=== PATIENT | male | born 1990 | race Caucasian/White ===

== ENCOUNTER 2025-07-11 14:56 | Outpatient (CLI) | payer OTHER, SELFPAY ==
--- OUTSIDE RECORDS SUMMARY | 2025-06-23 11:30 | XMS_ITS | Encounter Summary ---
Author Organization [employer] ([place], [place], [place], [place], [place]) Address [address] [place] [address] Care Team Providers Care Director Search Name Role Phone Unavailable Primary Care Provider Unavailabl e Reason for Visit * Consultation (Routine) - Closed Specialty Diagnoses / Procedures Referred By Perez t Referred To Contact Gastroenterology Diagnoses Gastroparesis Elaina Alcazar, MASSIEL [address] [place] [address] Phone: tel: fax: [facility] Gastroenterology [address] [place] [address] Phone: tel: fax: Referral ID Status Reason Start Date Expiration Date V isits Requested Visits Authorized [id number] Closed Specialty Services Required 04/21/2025 04/21/2026 1 1 Encounter Details Date Type Department Care Team (Latest Contact Info) Description 06/23/2025 11:30 AM EST Initial Consult [facility] Gastroenterology [address] [place] [address] Elaina Alcazar BRIDGE CONTRACTOR [address] [place], [place] [id number] Alma Cervantes MD [address] [facility] [address] [place] [address] Exocrine pancreatic insufficiency (Primary Dx); Bilious vomiting with nausea; Marijuana use Social History Tobacco Use Types Packs/Day Years Used Date Smoking Tobacco: Former Cigarettes 0.3 2 Smokeless Tobacco: Former Snuff Quit: 07/14/2023 Tobacco Cessation:Counseling Given: Not Answered Alcohol Use Standard Drinks/Week Comments Never 0 (1 standard drink = 0.6 oz pur e alcohol) Sex and Gender Information Value Date Recorded Sex Assigned at Not on file Legal Sex Male 6:18 PM CDT Gender Identity Not on file Sexual Orientation Not on file documented as of this encounter Last Filed Vital Signs Vital Sign Reading Time Taken Comments Blood Pressure 106/68 06/23/2025 11:19 AM EST Pulse 62 06/23/2025 11:19 AM EST Temperature 36.7 C (98 F) 06/23/2025 11:19 AM EST Respiratory Rate - - Oxygen Saturation 98% 06/23/2025 11:19 AM EST Inhaled Oxygen Concentration - - Weight 60.1 kg (132 lb 9.6 oz) 06/23/2025 11:19 AM EST Height 175.3 cm (5' 9 ) 06/23/2025 11:19 AM EST Body Mass Index 19.58 06/23/2025 11:19 AM EST documented in this encounter Functional Status * BP Answer Date of Assessment Author 106/68 06/23/2025 11:19 AM Rony Powell CMA * Temp Answer Date of Assessment Author 98 06/23/2025 11:19 AM Rony Powell CMA * Temp src Answer Date of Assessment Author Skin 06/23/2025 11:19 AM Rony Powell CMA * Pulse Answer Date of Assessment Author 62 06/23/2025 11:19 AM Rony Powell CMA * SpO2 Answer Date of Assessment Author 98 06/23/2025 11:19 AM Rony Powell CMA * Height Answer Date of Assessment Author 69 06/23/2025 11:19 AM Rony Powell CMA * Weight Answer Date of Assessment Author 2121.6 06/23/2025 11:19 AM Rony Powell CMA * Tidal Volume Answer Date of Assessment Author 420 06/23/2025 11:19 AM Rony Powell CMA * Shock Index Answer Date of Assessment Author 0.58 06/23/2025 11:19 AM CAREER BASED INTERVENTION COORDINATOR Rony Villalobos, SHIFT ENGINEER * BMI (Calculated) Answer Date of Assessment Author 19.6 06/23/2025 11:19 AM CAREER BASED INTERVENTION COORDINATOR Rony Villalobos, SHIFT ENGINEER * BP Location Answer Date of Assessment Author Left arm 06/23/2025 11:19 AM CAREER BASED INTERVENTION COORDINATOR Rony Villalobos, SHIFT ENGINEER * Patient Position Answer Date of Assessment Author Sitting 06/23/2025 11:19 AM CAREER BASED INTERVENTION COORDINATOR Rony Villalobos, SHIFT ENGINEER * BP Answer Date of Assessment Author 106/68 06/23/2025 11:19 AM CAREER BASED INTERVENTION COORDINATOR Nikolai Villalobosta, SHIFT ENGINEER * Pulse Answer Date of Assessment Author 62 06/23/2025 11:19 AM CAREER BASED INTERVENTION COORDINATOR Rony Villalobos, SHIFT ENGINEER * SpO2 Answer Date of Assessment Author 98 06/23/2025 11:19 AM CAREER BASED INTERVENTION COORDINATOR Rony Villalobos, SHIFT ENGINEER * BMI (Calculated) Answer Date of Assessment Author 19.6 06/23/2025 11:19 AM CAREER BASED INTERVENTION COORDINATOR Rony Villalobos SHIFT ENGINEER documented as of this encounter Mental Status * BP Answer Entry Date Author 106/68 06/23/2025 11:19 AM CAREER BASED INTERVENTION COORDINATOR Rony Villalobos, SHIFT ENGINEER * Temp Answer Entry Date Author 98 06/23/2025 11:19 AM CAREER BASED INTERVENTION COORDINATOR Rony Villalobos, SHIFT ENGINEER * Temp src Answer Entry Date Author Skin 06/23/2025 11:19 AM CAREER BASED INTERVENTION COORDINATOR Rony Villalobos, SHIFT ENGINEER * Pulse Answer Entry Date Author 62 06/23/2025 11:19 AM CAREER BASED INTERVENTION COORDINATOR Rony Villalobos, SHIFT ENGINEER * SpO2 Answer Entry Date Author 98 06/23/2025 11:19 AM CAREER BASED INTERVENTION COORDINATOR Rony Villalobos, SHIFT ENGINEER * Height Answer Entry Date Author 69 06/23/2025 11:19 AM CAREER BASED INTERVENTION COORDINATOR Nikolai Villalobosta, SHIFT ENGINEER * Weight Answer Entry Date Author 2121.6 06/23/2025 11:19 AM CAREER BASED INTERVENTION COORDINATOR Nikolai Villalobosta, SHIFT ENGINEER * Tidal Volume Answer Entry Date Author 420 06/23/2025 11:19 AM CAREER BASED INTERVENTION COORDINATOR Rony Villalobos, SHIFT ENGINEER * Shock Index Answer Entry Date Author 0.58 06/23/2025 11:19 AM CAREER BASED INTERVENTION COORDINATOR Rony Villalobos, SHIFT ENGINEER * BMI (Calculated) Answer Entry Date Author 19.6 06/23/2025 11:19 AM Rony Powell CMA * BP Location Answer Entry Date Author Left arm 06/23/2025 11:19 AM Rony Powell CMA * Patient Position Answer Entry Date Author Sitting 06/23/2025 11:19 AM Rony Powell CMA documented in this encounter Progress Notes * Alma Cervantes MD - 06/23/2025 11:30 AM EST Subjective History of Present Illnesses: He is a 35-year-old man with a BMI of 20 and long history of marijuana use referred for history of pancreatic insufficiency and gastroparesis. He said he underwent extensive GI workup in [place] in the past. No significant pathology was found. He was treated with Zenpep. He complained of infrequent nausea and vomiting but otherwise doing well with Zenpep. Denied alcohol use. Denied melena or rectal bleeding. Past Medical History: Diagnosis Date Colon polyp 06-30-2023 5 mm polyp that was pre cancerous was removed GERD (gastroesophageal reflux disease) 06-30-2023 Its actually exocrine pancreatic insufficiency and gastroparesis Past Surgical History: Procedure Laterality Date COLONOSCOPY 06-30-2023 UPPER GASTROINTESTINAL ENDOSCOPY 06-30-2023 Social History Substance and Sexual Activity Alcohol Use Never Family History Problem Relation Name Age of Onset Irritable bowel syndrome Mother Allyssa Alexander Review of Systems Constitutional: Positive for fatigue. Gastrointestinal: Positive for abdominal pain, nausea and vomiting. All other systems reviewed and are negative. Physical Exam: Blood pressure 106/68, pulse 62, temperature 98 ??F (36.7 ??C), temperature source Skin, height 1.753 m (5' 9 ), weight 60.1 kg (132 lb 9.6 oz), SpO2 98%. Physical Exam Vitals and nursing note reviewed. Exam conducted with a press operator automatic present. Constitutional: General: He is not in acute distress. Appearance: Normal appearance. He is normal weight. He is not ill-appearing, toxic-appearing or diaphoretic. Abdominal: General: Abdomen is flat. There is no distension. Palpations: Abdomen is soft. Tenderness: There is no abdominal tenderness. Neurological: Mental Status: He is alert. Psychiatric: Mood and Affect: Mood normal. Labs: No results found for this visit on 06/23/25 (from the past 24 hours). No image results found. Assessment and Plan: Diagnoses and all orders for this visit: Exocrine pancreatic insufficiency Bilious vomiting with nausea - Ambulatory referral to Gastroenterology Marijuana use Other orders - Zenpep 40,000-126,000- 168,000 unit cpDR; Take 120,000 units of lipase by mouth 3 (three) times daily with meals for 30 days Take 3 capsules orally prior to each meal and 2 with snack.. Refill Zenpep for patient. Blood works by his PCP were unremarkable. No indication for aggressive GI workup at this time. All question answered. Follow- up per patient's preference. ER BASED INTERVENTION COORDINATOR documented in this encounter Plan of Treatment Not on file documented as of this encounter Visit Diagnoses Diagnosis Exocrine pancreatic insufficiency- Primary Other specified disease of pancreas Bilious vomiting with nausea Marijuana use documented in this encounter
--- OUTSIDE RECORDS SUMMARY | 2025-07-11 14:58 | XMS_ITS | Encounter Summary ---
Author Organization [employer] ([place], [place], [place], [place], [place]) Address [address] [place] [address] Care Team Providers Care Microbiology Technician Name Role Phone Unavailable Primary Care Provider Unavailabl e Encounter Details Date Type Department Care Team (Late st Contact Info) Description 08/07/2023 Clinic Visit [facility] Gastroenterology [address] [facility] [address] [facility] [address] [place] [address] [facility], [facility] Social History Tobacco Use Types Packs/Day Years Used Date Smoking Tobacco: Never Assessed Sex and Gender Information Value Date Recorded Sex Assigned at Not on file Legal Sex Male 6:18 PM CDT Gender Identity Not on file Sexual Orientation Not on file documented as of this encounter Plan of Treatment Not on file documented as of this encounter Visit Diagnoses Not on filedocumented in this encounter
--- OUTSIDE RECORDS SUMMARY | 2025-07-11 15:01 | XMS_ITS | Encounter Summary ---
Author Organization [employer] ([place], [place], [place], [place], [place]) Address [address] [place] [address] Care Team Providers Care Team Facilitator Name Role Phone Unavailable Primary Care Provider Unavailabl e Encounter Details Date Type Department Care Team (Late st Contact Info) Description 06/30/2023 Clinic Visit [facility] Gastroenterology [address] [address] [facility] [address] [place] [address] [facility], [facility] Social History Tobacco Use Types Packs/Day Years [...]
--- OUTSIDE RECORDS SUMMARY | 2025-07-11 15:02 | XMS_ITS | Encounter Summary ---
Author Organization [employer] ([place], [place], [place], [place], [place]) Address [address] [place] [address] Care Team Providers Care Continuous Miner Name Role Phone Unavailable Primary Care Provider Unavailabl e Encounter Details Date Type Department Care Team (Late st Contact Info) Description 05/19/2023 Clinic Visit [facility] Gastroenterology [address] [address] [place] [address] [facility], [facility] Social History Tobacco Use Types Packs/Day Years [...]
--- OUTSIDE RECORDS SUMMARY | 2025-07-11 15:03 | XMS_ITS | Clinical Summary ---
Author Organization [employer] ([place], [place], [place], [place], [place]) Address [address] [place] [address] Care Team Providers Care Field Care Coordinator Name Role Phone Unavailable Primary Care Provider Unavailabl e Allergies No known active allergies Medications Zenpep 40,000-126,000- 168,000 unit cpDRIndications:e xocrine pancreatic insufficiency Take 120,000 units of lipase by mouth 3 (three) times daily with meals for 30 days Take 3 capsules orally prior to each meal and 2 with snack.. 300 capsule 11 5 07/23/19 26 Active Zenpep 40,000-126,000- 168,000 unit cpDR 3 06/23/20 25 Discontin ued(Reord er) Active Problems Problem Noted Date Diagnosed Date Exocrine pancreatic insufficiency 06/23/2025 Encounters Date Type Department Care Team Description 06/23/2025 11:30 AM EST Initial Consult [facility] Gastroenterology [address] [facility] [address] [place] [phone] Elaina Alcazar APRN Yong, June Y, MD Exocrine pancreatic insufficiency (Primary Dx); Bilious vomiting with nausea; Marijuana use 06/23/2025 Travel from Last 3 Months Family History Medical History Relation Name Comments Irritable bowel syndrome Mother Allyssa Alexander Relation Name Status Comments Mother Allyssa Alexander Alive Social History Tobacco Use Types Packs/Day Years [...] on file Sexual Orientation Not on file Last Filed Vital Signs Vital Sign Reading [...] Mass Index 19.58 06/23/2025 11:19 AM EST Plan of Treatment Not on file Procedures Procedure Name Priority Date/Time Associated Diagnosis Comments EXTERNAL LAB - MISC Routine 06/27/2025 9:05 AM EST EXTERNAL IMAGING - CT Routine 06/27/2025 9:00 AM EST EXTERNAL IMAGING - MISC Routine 06/27/2025 8:56 AM EST EXTERNAL LAB - MISC Routine 04/17/2025 1:54 PM EDT from Last 3 Months Results * EXTERNAL LAB - MISC (06/27/2025 9:05 AM EST) Only the most recent of2 resultswithin the time period is included. Historical Provider LAB BLOOD ORDERABLES Suyapa l Result * EXTERNAL IMAGING - CT (06/27/2025 9:00 AM EST) Anatomical Region Laterality Modality Other Historical Provider HEALTH MAINTENANCE Final Result * EXTERNAL IMAGING - MISC (06/27/2025 8:56 AM EST) Anatomical Region Laterality Modality Other Historical Provider HEALTH MAINTENANCE Final Result from Last 3 Months Insurance [facility] [place]
--- OUTSIDE RECORDS SUMMARY | 2025-07-11 15:03 | XMS_ITS | Referral Summary ---
Author Organization [employer] ([place], [place], [place], [place], [place]) Address [address] [place] [address] Care Team Providers Care Tassel Maker Name Role Phone Unavailable Primary Care Provider Unavailabl e Encounters Date Type Department Care Team Description 06/23/2025 Travel 06/23/2025 11:30 AM EST Initial Consult [facility] Gastroenterology [address] [facility] [address] [place] [phone] Elaina Alcazar APRN Yong, June Y, MD Exocrine pancreatic insufficiency (Primary Dx); Bilious vomiting with nausea; Marijuana use from Last 3 Months Allergies No known active allergies Medications Zenpep [...] Date Diagnosed Date Exocrine pancreatic insufficiency 06/23/2025 Social History Tobacco Use Types Packs/Day Years [...] Final Result from Last 3 Months Insurance [facility]
--- OUTSIDE RECORDS SUMMARY | 2025-07-11 15:03 | XMS_ITS | Clinical Summary ---
Author Organization [employer] [facility] Address [address] [facility] [place] [address] Care Team Providers Care Mold Inspector Name Role Phone Elie Zuniga MD Primary Care Provider Allergies No known active allergies Medications pantoprazole (PROTONIX) 40 MG tablet 07/25/2023 Active Zenpep 40,000-126,000- 168,000 unit cpDR Take 3 capsules by mouth 11/19/2023 Active Active Problems Problem Noted Date Diagnosed Date Exocrine pancreatic insufficiency 11/07/2023 Social History Tobacco Use Types Packs/Day Years Used Date Smoking Tobacco: Former Cigarettes Passive Smoke Exposure: Past Smokeless Tobacco: Former Snuff Quit: 12/2023 Tobacco Cessation:Counseling Given: Yes Alcohol Use Standard Drinks/Week Comments Never 0 (1 standard drink = 0.6 oz pur e alcohol) Sex and Gender Information Value Date Recorded Sex Assigned at Not on file Legal Sex Male 12:00 PM EDT Gender Identity Not on file Sexual Orientation Not on file Last Filed Vital Signs Vital Sign Reading Time Taken Comments Blood Pressure 124/74 01/22/2024 3:35 PM EDT Pulse 63 01/22/2024 3:35 PM EDT Temperature 36.3 C (97.3 F) 01/22/2024 3:35 PM EDT Respiratory Rate 18 01/22/2024 3:35 PM EDT Oxygen Saturation 99% 01/22/2024 3:35 PM EDT Inhaled Oxygen Concentration - - Weight 60.8 kg (134 lb) 01/22/2024 3:35 PM EDT Height 172.7 cm (5' 8 ) 01/22/2024 3:35 PM EDT Body Mass Index 20.37 01/22/2024 3:35 PM EDT Plan of Treatment Health Maintenance Due Date Last Done Comments Depression: Screening Annual ly using PHQ-2/9 in Adults 18 yrs or above (or HM Modifier)([facility]) 2010 Hepatitis C Virus Infection in Adolescents and Adults: Screening (or Modifier) ([facility]) 2010 SDOH Screening Reminder: [place] for all adults ([facility]) 2010 DTaP/Tdap/Td Vaccines ([facility]) (1 - Tdap) 2011 Tobacco Smoking Cessation: i n Adults excluding Women: Behavioral and Pharmacotherapy Interventions ([facility]) 01/21/2025 01/22/2024 Flu Vaccination: Yearly for ages 18mos through 64 years (or Modifier)([facility]) 02/11/2025 COVID-19 Vaccine Screening: Initial Series and Booster Status ([facility]) ( - 2024- season) 2025 Zoster/Shingles Vaccine Seri es Screening: Adults aged 18+ yrs (or HM Modifiers)([facility]) (1 of 2) 2042 Pneumococcal Vaccination Scr eening: Pts 0-19 & 19-49 yrs of age ([facility]) Aged Out No longer eligible b ased on patient's age to complete this topic Medical Devices Not on file Insurance [facility] [place] [id number] Care Teams Mold Inspector Relationship Specialty Start Date End Date Elie Zuniga MD [address] [facility] [address] [place] [phone] PCP - General Family Medicine 10/07/23
--- OUTSIDE RECORDS SUMMARY | 2025-07-11 15:03 | XMS_ITS | Encounter Summary ---
Author Organization [employer] ([place], [place], [place], [place], [place]) Address [address] [place] [address] Care Team Providers Care Cripple Worker Name Role Phone Unavailable Primary Care Provider Unavailabl e Encounter Details Date Type Department Care Team (Latest Contact Info) Description 06/23/2025 Travel Social History Tobacco Use Types Packs/Day Years Used Date Smoking Tobacco: Former Cigarettes 0.3 2 Smokeless Tobacco: Former Snuff Quit: 07/14/2023 Alcohol Use Standard Drinks/Week Comments Never 0 (1 standard drink = 0.6 oz pur e alcohol) Sex and Gender Information Value Date Recorded Sex Assigned at Not on file Legal Sex Male 6:18 PM CDT Gender Identity Not on file Sexual Orientation Not on file documented as of this encounter Functional Status * Communicable Disease Screening Question Answer Date of Assessment Author Have you been in contact wit h someone who was sick? No / Unsure 06/23/2025 11:02 AM Blaire Santoyo ssa Do you have any of the following new or worsening symptoms? None of these 06/23/2025 11:02 AM Jeffery Santoyo documented as of this encounter Plan of Treatment Not on file documented as of this encounter Visit Diagnoses Not on filedocumented in this encounter
--- OUTSIDE RECORDS SUMMARY | 2025-07-11 15:04 | XMS_ITS | Encounter Summary ---
Author Organization [employer] ([place], [place], [place], [place], [place]) Address [address] [place] [address] Care Team Providers Care Truck Sales Representative Name Role Phone Unavailable Primary Care Provider Unavailabl e Encounter Details Date Type Department Care Team (Late st Contact Info) Description 04/08/2024 Clinic Visit [facility] Gastroenterology [address] [place] [address] [facility], [facility] Social History Tobacco Use Types Packs/Day Years [...]
--- OUTSIDE RECORDS SUMMARY | 2025-07-11 15:04 | XMS_ITS | Encounter Summary ---
Author Organization [employer] ([place], [place], [place], [place], [place]) Address [address] [place] [address] Care Team Providers Care Blurb Writer Name Role Phone Unavailable Primary Care Provider Unavailabl e Encounter Details Date Type Department Care Team (Late st Contact Info) Description 10/10/2023 Clinic Visit [facility] Gastroenterology [address] [facility] [address] [place] [address] [facility], [facility] Social History Tobacco Use Types Packs/Day [...]
--- OUTSIDE RECORDS SUMMARY | 2025-07-11 15:04 | XMS_ITS | Encounter Summary ---
Author Organization [employer] ([place], [place], [place], [place], [place]) Address [address] [place] [address] Care Team Providers Care Dinkey Engine Firer Name Role Phone Unavailable Primary Care Provider Unavailabl e Encounter Details Date Type Department Care Team (Late st Contact Info) Description 01/29/2024 Clinic Visit [facility] Gastroenterology [address] [place] [address] [facility], [facility] Social History Tobacco Use Types Packs/Day Years [...]
== END 2025-07-11 23:59 | disposition home or self-care (01) ==
LOC: RT 14:57
PROVIDERS: PCP Internal Medicine; Visit Provider Physician Assistant
DX: I49.1 Atrial premature depolarization (principal); I49.3 Ventricular premature depolarization
CPT/HCPCS: 93270